=== PATIENT | female | born 1975 | race Caucasian/White ===

== ENCOUNTER 2018-03-27 09:09 | Emergency (ER) | payer OTHER ==
[~2018-03-27] VITALS: Ht 157.5 cm; Wt 77.1 kg
--- NOTE | 2018-03-27 09:09 | NUR ---
PT BIBA TYRELL TO BED 3
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
[2018-03-27 09:21] VITALS: BP 167/94
--- NOTE | 2018-03-27 09:40 | NUR ---
PT TO XRAY VIA W/C WITH SOLAR/RENEWABLE ENERGY SALES IN NO APPEARENT DISTRESS
[2018-03-27] MEDS ORDERED: ACETAMINOPHEN 325 MG TAB PO ONE (09:45)
--- NOTE | 2018-03-27 09:52 | NUR ---
PT TAKEN TO XRAY IN WHEELCHAIR
--- NOTE | 2018-03-27 10:00 | NUR ---
medicated for lt. arm/lt.leg pain
--- NOTE | 2018-03-27 10:01 | NUR ---
taken to xr via wheelchair
[2018-03-27 11:20] VITALS: BP 138/85
--- NOTE | 2018-03-27 11:20 | NUR ---
Patient discharged with v/s stable. Written and verbal after care instructions given and explained. Patient verbalized understanding. Ambulatory with steady gait. All questions addressed prior to discharge. Advised to follow up with PMD.
== END 2018-03-27 11:20 | disposition home or self-care (01) ==
LOC: MED 09:09
DX: S43.402A Unspecified sprain of left shoulder joint, initial encounter (principal); M79.632 Pain in left forearm; E11.9 Type 2 diabetes mellitus without complications; I10 Essential (primary) hypertension; V49.49XA Driver injured in collision with other motor vehicles in traffic accident, initial encounter; Y93.89 Activity, other specified; Y99.8 Other external cause status; Y92.410 Unspecified street and highway as the place of occurrence of the external cause
CPT/HCPCS: 73030; 73090; 99284